=== PATIENT | male | born 1990 | race Caucasian/White ===

== ENCOUNTER 2018-12-18 04:03 | Emergency (ER) | payer OTHER ==
[~2018-12-18] VITALS: Ht 193 cm; Wt 95.0 kg
[2018-12-18 04:35] LABS: BASO % 0.2 % (0.0-1.0); EOS % 0.3 % (0.0-3.0); HEMATOCRIT 43.7 % (42.0-52.0); HEMOGLOBIN 14.6 g/dl (13.5-17.5); LYMPH # 1.9 10^3/uL (1.5-6.5); LYMPH % 15.5 % (24.0-44.0); MEAN CORPUSCULAR HEMOGLOBIN 29.7 pg (27.0-33.0); MEAN CORPUSCULAR HGB CONC 33.4 g/dl (32.0-36.5); MONO # 1.4 10^3/uL (0.0-0.8); MONO % 11.3 % (0.0-5.0); NEUTROPHILS % 72.1 % (36.0-66.0); PLATELET COUNT, AUTOMATED 234 10^3/uL (150-450); RED BLOOD COUNT 4.91 10^6/uL (4.30-6.10); WHITE BLOOD COUNT 12.5 10^3/uL (4.0-10.0)
[2018-12-18] MEDS ORDERED: MORPHINE 10 MG/ML 1ML VIAL (J2270) IV ONE (05:15)
[2018-12-18] MEDS ORDERED: METOCLOPRAMIDE INJ 10MG/2ML VIAL (J2765) IV ONE (05:15)
[2018-12-18] MEDS ORDERED: NS 1,000 ML IV ONE (05:15)
[2018-12-18 05:19] LABS: ALBUMIN 3.5 GM/DL (3.2-5.2); ALT/SGPT 32 U/L (12-78); BILIRUBIN,DIRECT 0.2 MG/DL (0.0-0.2); BILIRUBIN,TOTAL 0.6 MG/DL (0.2-1.0); BLOOD UREA NITROGEN 10 MG/DL (7-18); CALCIUM LEVEL 8.7 MG/DL (8.5-10.1); CARBON DIOXIDE LEVEL 30 MEQ/L (21-32); CHLORIDE LEVEL 103 MEQ/L (98-107); CREATININE FOR GFR 1.09 MG/DL (0.70-1.30); GLOMERULAR FILTRATION RATE > 60.0 (>60); GLUCOSE, FASTING 142 MG/DL (70-100); LIPASE 156 U/L (73-393); SODIUM LEVEL 138 MEQ/L (136-145); TOTAL PROTEIN 7.1 GM/DL (6.4-8.2)
[2018-12-18] MEDS ORDERED: ISOVUE-370 76% 100ML VIAL (Q9967) As Ordered ONE (05:19)
[2018-12-18] MEDS ORDERED: cefTRIAXone SOD 1 GM in D5W MINI-BAG PLUS 50 ML IV ONE (06:30)
[2018-12-18] MEDS ORDERED: ACETAMINOPHEN 500 MG TAB PO ONE (06:30)
[2018-12-18] MEDS ORDERED: AZITHROMYCIN INJ 500 MG, VIAL MATE ADAPTER 1 EACH in D5W 250 ML IV ONE (07:00)
--- NOTE | 2018-12-18 07:19 | REPVR ---
EXAM: CT Abdomen and Pelvis With Contrast EXAM DATE/TIME: 12/18/2018 5:14 AM CLINICAL HISTORY: 28 years old, male; Abdominal pain; Generalized; Additional info: Eval for appy TECHNIQUE: Imaging protocol: Axial computed tomography images of the abdomen and pelvis with intravenous contrast. Coronal and sagittal reformatted images were created and reviewed. Radiation optimization: All CT scans at this facility use at least one of these dose optimization techniques: automated exposure control; mA and/or kV adjustment per patient size (includes targeted exams where dose is matched to clinical indication); or iterative reconstruction. Contrast material: ISO; Contrast volume: 100 ml; Contrast route: AC; COMPARISON: No relevant prior studies available. FINDINGS: Lungs: Moderate airspace opacities in bilateral lower lobes, right greater than left likely representing pneumonia. Pleural space: Small right pleural effusion. Heart: Cardiomegaly. ABDOMEN: Liver: Liver is enlarged with diffuse fatty infiltration. Gallbladder and bile ducts: Normal. No calcified stones. No ductal dilation. Pancreas: Normal. No ductal dilation. Spleen: Normal. No splenomegaly. Adrenals: Normal. No mass. Kidneys and ureters: Normal. No hydronephrosis. Stomach and bowel: Normal. No obstruction. No mucosal thickening. Appendix: Normal appendix. PELVIS: Bladder: Unremarkable as visualized. Reproductive: Unremarkable as visualized. ABDOMEN and PELVIS: Intraperitoneal space: Normal. No free air. No significant fluid collection. Bones/joints: No acute fracture. No dislocation. Soft tissues: Unremarkable. Vasculature: Normal. No abdominal aortic aneurysm. Lymph nodes: Normal. No enlarged lymph nodes. IMPRESSION: Moderate airspace opacities in bilateral lower lobes, right greater than left likely representing pneumonia. Small right pleural effusion. Enlarged fatty liver. Appendix is normal. Electronically signed by: Eva Saunders On 12/18/2018 07:18:52 AM
[2018-12-18] MEDS ORDERED: ZITHTAB PO (07:33)
[2018-12-18 07:56] VITALS: BP 106/57
== END 2018-12-18 08:22 | disposition home or self-care (01) ==
LOC: M ED 04:03 → EDBD 04:03 → M ED 08:22
DX: R91.8 Other nonspecific abnormal finding of lung field (principal); R50.9 Fever, unspecified; K76.0 Fatty (change of) liver, not elsewhere classified; R16.0 Hepatomegaly, not elsewhere classified; J90 Pleural effusion, not elsewhere classified
CPT/HCPCS: 36415; 74177; 80048; 80076; 83690; 85025; 96361; 96365; 96367; 96375; 99284; J0456; J0696; J2270; J2765; Q9967

== ENCOUNTER 2019-06-14 02:27 | Emergency (ER) | payer OTHER ==
[~2019-06-14] VITALS: Ht 182.9 cm; Wt 90.9 kg
[~2019-06-14 02:27] MED LIST: ZITHTAB PO
[2019-06-14] MEDS ORDERED: SERT-138 PO (02:42)
[2019-06-14] MEDS ORDERED: IBUP80TA PO (02:42)
[2019-06-14] MEDS ORDERED: PRED20TA PO (02:42)
[2019-06-14] MEDS ORDERED: PROAAER10 INH (02:42)
[2019-06-14 05:17] VITALS: BP 118/68
--- NOTE | 2019-06-14 05:56 | REP ---
Clinical: Right-sided chest pain. Cough. Technique: PA and lateral. Comparison: None. Findings: Subtle right basilar atelectasis/early infiltrate. No pneumothorax. No significant effusion. Mediastinum and cardiac silhouette normal. Skeletal structures intact. Impression: Subtle right basilar atelectasis/early infiltrate. Electronically Signed by Adeel Malave MD 06/14/2019 05:46 A
--- NOTE | 2019-06-14 10:03 | ED PDOC ---
Post-Departure Follow-Up radiology report faxed to [facility] Nora Gamez MD Jun 14, 2019 10:03
[2019-06-15] MEDS ORDERED: VITA100024 PO (13:37)
== END 2019-06-14 05:20 | disposition home or self-care (01) ==
LOC: M ED 02:27
DX: R07.89 Other chest pain (principal); Z79.899 Other long term (current) drug therapy

== ENCOUNTER 2019-06-15 09:51 | Inpatient (IN) | payer OTHER ==
[~2019-06-15] VITALS: Ht 182.9 cm; Wt 90.1 kg
[~2019-06-15 09:51] MED LIST changes: +IBUP80TA PO; +PRED20TA PO; +PROAAER10 INH; +SERT-138 PO
[2019-06-15] MEDS ORDERED: ALBUTEROL SULFATE 2.5 MG/0.5 ML INH NEB SOLN NEB ONE (10:45)
--- NOTE | 2019-06-15 11:06 | REP ---
Chest x-ray: Two views. History: Rule out pneumonia . Comparison study: June 14, 2019 . Findings: There is an infiltrate again noted posteriorly in the right lower lobe behind the dome of the diaphragm unchanged from yesterday's radiograph and consistent with pneumonia. Remaining lung martel are clear. Heart is not enlarged. Pleural angles are sharp. Impression: Infiltrate in the right base consistent with pneumonia unchanged from yesterday's radiograph. Electronically Signed by Pawel Castellon MD 06/15/2019 10:57 A
[2019-06-15 11:08] LABS: BASO % 0.2 % (0.0-1.0); EOS % 0.1 % (0.0-3.0); HEMATOCRIT 43.4 % (42.0-52.0); HEMOGLOBIN 14.1 g/dl (13.5-17.5); LYMPH # 1.5 10^3/uL (1.5-5.0); LYMPH % 9.2 % (24.0-44.0); MEAN CORPUSCULAR HEMOGLOBIN 29.1 pg (27.0-33.0); MEAN CORPUSCULAR HGB CONC 32.5 g/dl (32.0-36.5); MEAN CORPUSCULAR VOLUME 89.7 fl (80.0-96.0); MONO # 1.2 10^3/uL (0.0-0.8); MONO % 7.1 % (0.0-5.0); NEUTROPHILS # 13.4 10^3/uL (1.5-8.5); PLATELET COUNT, AUTOMATED 214 10^3/uL (150-450); RED BLOOD COUNT 4.84 10^6/uL (4.30-6.10); WHITE BLOOD COUNT 16.3 10^3/uL (4.0-10.0)
[2019-06-15 11:27] LABS: BLOOD UREA NITROGEN 10 MG/DL (7-18); CALCIUM LEVEL 8.9 MG/DL (8.5-10.1); CARBON DIOXIDE LEVEL 30 MEQ/L (21-32); CHLORIDE LEVEL 106 MEQ/L (98-107); CREATININE FOR GFR 0.83 MG/DL (0.70-1.30); GLOMERULAR FILTRATION RATE > 60.0 (>60); GLUCOSE, FASTING 86 MG/DL (70-100); SODIUM LEVEL 140 MEQ/L (136-145)
[2019-06-15] MEDS ORDERED: ISOVUE-370 76% 100ML VIAL (Q9967) As Ordered ONE (11:43)
--- NOTE | 2019-06-15 12:42 | REP ---
CT of the chest with IV contrast for elevated D-dimer and pleuritic chest pain: Comparison is the PA and lateral plain film study performed earlier today. There is an infiltrate in the right lower lobe and there is a small right pleural effusion. There is no left lung infiltrate or pleural effusion. There are no lung nodules or masses. There are no emboli in the pulmonary trunk or central pulmonary arteries. There is an embolus in a fourth order branch of the pulmonary artery to the posterior basilar segment of the right lower lobe. No other pulmonary emboli are identified. The thoracic aorta is unremarkable. Cardiac size is upper normal. There is no pericardial effusion. The visualized upper abdominal contents are unremarkable. Impression: Right lower lobe infiltrate. Small right pleural effusion. Pulmonary embolus in a the fourth order branch of the pulmonary artery to the posterior basilar segment of the right lower lobe. Electronically Signed by Melvin Bean MD 06/15/2019 12:34 P
[2019-06-15] MEDS ORDERED: ACETAMINOPHEN 500 MG TAB PO PRN (13:30)
[2019-06-15] MEDS ORDERED: VITA100024 PO (13:37)
[2019-06-15] MEDS ORDERED: cefTRIAXone SOD 2 GM in D5W MINI-BAG PLUS 50 ML IV ONE (13:45)
[2019-06-15] MEDS ORDERED: DOXYCYCLINE HYCLATE 100 MG in D5W MINI-BAG PLUS 100 ML IV ONE (13:45)
[2019-06-15] MEDS ORDERED: ALBUTEROL SULFATE 2.5 MG/0.5 ML INH NEB SOLN INH PRN (14:00)
--- NOTE | 2019-06-15 14:20 | HPE ---
DATE OF ADMISSION: 06/15/2019 PRIMARY CARE PROVIDER: [facility]. PRINCIPAL DIAGNOSIS: Pulmonary embolism, possible right lower lobe pneumonia. HISTORY: Roney Frazier is a 28-year-old who has had several emergency room and urgent care visits recently for pleuritic right chest pain. Today he came in and had an elevated D-dimer. CT scan of the chest shows right lower lobe pulmonary embolism, as well as a right pleural effusion with possible infiltrate. He has had some chills recently and a cough that is nonproductive. He has no past history of veno thromboembolism, nor is there any family history of this. He says his only risk factor for a deep vein thrombosis (DVT)/pulmonary embolism is frequent prolonged bus rides, he spends about 13 hours a day once a week on a bus going to [facility] to attend a college class and this most recently occurred last week. There is no other risk factor. He is not a smoker. There is no history of leg injury, recent surgery, malignancy, nor any known family history. PAST MEDICAL HISTORY: 1. Pneumonia about 6 months ago. 2. He apparently has hyperlipidemia. SOCIAL HISTORY: He works at [employer]. He does not smoke. He drinks alcohol on rare occasions. He has a son. FAMILY HISTORY: Father's health is unknown. Mother had breast cancer, hypertension. No history of VTE in the family. REVIEW OF SYSTEMS: He has recurrent epistaxis. No rectal bleeding or urinary bleeding. No hemoptysis. No exertional chest pain. No falls or injuries. MEDICATIONS: - albuterol - prednisone at home - sertraline 100 mg daily - ibuprofen as needed - vitamin C PHYSICAL EXAMINATION: VITAL SIGNS: Per flow sheet. Oxygen saturation 98% on room air. GENERAL APPEARANCE: Alert, conversant. No distress. HEENT: Pupils are equal and reactive to light. Tympanic membranes normal. Oropharynx clear. NECK: No masses. LUNGS: Rales in the right base. Soft rub noted. HEART: Regular rhythm. No murmur. ABDOMEN: Soft, nontender. No masses. EXTREMITIES: No cyanosis or edema. No palpable venous cords. No edema in the legs. LABORATORIES: White count 16,000, hemoglobin 14.1, platelets 214. Sodium 140, potassium 4.0, BUN 10, creatinine 0.8, glucose 86, D-dimer is 1600. No PT/PTT done. Chest x-ray shows right lower lobe pneumonia. CT angiogram showed pulmonary embolism in the branch of the pulmonary artery to the posterior basal segment of the right lower lobe. IMPRESSION: 1. Pulmonary embolism. The patient will be admitted to a progressive care unit (PCU) bed and started on Lovenox 1 mg/kg subcutaneous every 12 hours. Could be started on a direct oral anticoagulant, such as Xarelto tomorrow. Thrombophilia workup has been ordered. Ultrasound of both legs ordered. Suspect the etiology of this is DVT from his prolonged bus travel. I had a long discussion with the patient concerning the need to followup with [facility] physician after discharge. 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 2. Hyperlipidemia. This can be addressed through the [facility]. 3. History of depression/anxiety. Continue sertraline. 4. Right lower lobe pneumonia. IV Rocephin and doxycycline have been ordered. Followup CBC ordered. Nebulized bronchodilator as needed. Supplemental oxygen as needed. Respiratory panel ordered.
[2019-06-15 15:07] LABS: INR 1.12; PROTHROMBIN TIME 14.1 SECONDS (11.8-14.0)
[2019-06-15 15:08] LABS: PARTIAL THROMBOPLASTIN TIME 25.3 SECONDS (25.0-38.4)
[2019-06-15 15:40] VITALS: BP 140/98
[2019-06-15] MEDS: ENOXAPARIN 100MG/1ML SYRINGE (J1650) SC SCH (15:50)
[2019-06-15] MEDS: cefTRIAXone SOD 2 GM in D5W MINI-BAG PLUS 50 ML IV SCH (15:50)
--- NOTE | 2019-06-15 15:59 | REP ---
Duplex extremity venous ultrasound: Bilateral lower extremity. History: Pulmonary embolus. Question DVT. Findings: The deep veins are anechoic and fully compressible from the groin to the popliteal fossa in the left and right lower extremity. Color flow imaging is homogeneous. Spectral Doppler interrogation demonstrates intact respiratory variation in flow and normal manual augmentation of flow. There is no evidence of deep vein thrombosis. Impression: Negative bilateral lower extremity duplex venous ultrasound. No evidence of deep vein thrombosis. Electronically Signed by Pawel Castellon MD 06/15/2019 03:51 P
[2019-06-15] MEDS: ALBUTEROL SULFATE 2.5 MG/0.5 ML INH NEB SOLN INH SCH ×2 (16:30→20:36)
[2019-06-15] MEDS: DOXYCYCLINE HYCLATE 100 MG in D5W MINI-BAG PLUS 100 ML IV SCH (16:33)
[2019-06-15] MEDS ORDERED: SLF 3 ML SYR IV PRN (17:15)
[2019-06-15] MEDS: SLF 3 ML SYR IV SCH (19:28)
[2019-06-15 20:00] VITALS: BP 132/76
[2019-06-16] VITALS: BP 144/88
[2019-06-16] MEDS ORDERED: CYCLOBENZAPRINE 10 MG TAB PO ONE (00:15)
[2019-06-16] MEDS: ENOXAPARIN 100MG/1ML SYRINGE (J1650) SC SCH ×2 (03:59→13:13)
[2019-06-16 04:00] VITALS: BP 130/84
[2019-06-16] MEDS: DOXYCYCLINE HYCLATE 100 MG in D5W MINI-BAG PLUS 100 ML IV SCH ×2 (04:00→16:09)
[2019-06-16] MEDS: SLF 3 ML SYR IV SCH ×3 (04:00→19:50)
[2019-06-16] MEDS ORDERED: traMADol 50 MG TAB PO PRN (04:15)
[2019-06-16 06:12] LABS: HEMATOCRIT 42.8 % (42.0-52.0); HEMOGLOBIN 13.7 g/dl (13.5-17.5); MEAN CORPUSCULAR HEMOGLOBIN 28.9 pg (27.0-33.0); MEAN CORPUSCULAR VOLUME 90.3 fl (80.0-96.0); PLATELET COUNT, AUTOMATED 223 10^3/uL (150-450); RED BLOOD COUNT 4.74 10^6/uL (4.30-6.10); WHITE BLOOD COUNT 10.1 10^3/uL (4.0-10.0)
[2019-06-16 06:29] LABS: BLOOD UREA NITROGEN 8 MG/DL (7-18); CALCIUM LEVEL 8.6 MG/DL (8.5-10.1); CARBON DIOXIDE LEVEL 31 MEQ/L (21-32); CHLORIDE LEVEL 106 MEQ/L (98-107); CREATININE FOR GFR 0.97 MG/DL (0.70-1.30); GLOMERULAR FILTRATION RATE > 60.0 (>60); GLUCOSE, FASTING 94 MG/DL (70-100); POTASSIUM SERUM 3.8 MEQ/L (3.5-5.1); SODIUM LEVEL 142 MEQ/L (136-145)
[2019-06-16 08:00] VITALS: BP 139/69
[2019-06-16] MEDS: ALBUTEROL SULFATE 2.5 MG/0.5 ML INH NEB SOLN INH SCH ×4 (08:35→20:29)
[2019-06-16] MEDS: SERTRALINE 100 MG TAB PO SCH (08:50)
[2019-06-16 12:00] VITALS: BP 120/70
--- NOTE | 2019-06-16 13:33 | IPNPDOC ---
Text Note Date of Service The patient was seen on 06/16/19. NOTE Subjective: Patient complains of intermittent cough with reddish sputum produ ction. He continues to have mild shortness of breath on exertion, patient also complains on palpitations Objective:VITAL SIGNS: Please see below. GENERAL APPEARANCE: Well-nourished, well-developed, not in apparent distress HEENT: Normocephalic, atraumatic. Mucous members moist and pink CARDIOVASCULAR: Irregularly irregular rate. No murmurs, rubs or gallops. Radial pulses are intact. There is no lower extremity edema LUNGS: Diminished lung sounds, ABDOMEN: Bowel sounds are hypoactive. Abdomen is soft and nontender. MUSCULOSKELETAL: Range of motion is intact in all 4 extremities NEUROLOGICAL: Cranial nerves II-12 are grossly intact. Speech is not dysarthric Assessment and plan: Patient is 28 years old male without significant past medical history was admitted with pleuritic chest pain, patient was found to have a right lobe pneumonia and right pulmonary embolus. Sepsis Resolved Secondary to right lobe pneumonia Patient has elevated leukocytes count of 16.4 on admission with tachypnea and pulse rate of 95 Blood culture Sputum culture IV fluid PE Patient received treatment with Lovenox 1 mg per KG every 12 hours I will switch patient to Xarelto 15 mg BID for 21 days then 20 mg by mouth daily Await coagulation workup Patient will need follow-up with senior health consultant in the outpatient settings. Patient has never had history of blood clots. Hyperlipidemia. Follow-up in the outpatient settings with PCP History of depression/anxiety. Continue sertraline. Right lower lobe pneumonia. Continue IV Rocephin and doxycycline Nebulized bronchodilator as needed. Supplemental oxygen as needed. Respiratory panel ordered negative Tachyarrhythmia There is concern for frequent PVC versus atrial fibrillation in the settings of pulmonary emboli Telemetry EKG VS,Fishbone, I+O VS, Fishbone, I+O Laboratory Tests 06/16/19 05:56 Vital Signs Date Time Temp Pulse Resp B/P (MAP) Pulse Ox O2 Delivery O2 Flow Rate FiO2 06/16/19 12:00 98.7 86 120/70 (87) 18 Room Air 06/16/19 08:00 90 I&O- Last 24 Hours up to 6 AM 06/16/19 06:00 Intake Total 890 ml Output Total 675 ml Balance 215 ml DROZHZHIN,AVIS DO Jun 16, 2019 13:32
[2019-06-16] MEDS: cefTRIAXone SOD 2 GM in D5W MINI-BAG PLUS 50 ML IV SCH (15:07)
--- NOTE | 2019-06-16 15:35 | ECGEPIP ---
[facility] Test Date: 2019-06-16 Pat Name: CHE ALLAN Department: Room: [place] [address] Gender: Male Manager Account Management: LUZ : 1990 Requested By: AVIS MURRY Order Number: [id number] Reading MD: Rolando Saha Measurements Intervals [place] Rate: 85 P: 35 WY: 156 QRS: 27 QRSD: 97 T: 19 QT: 357 QTc: 425 Interpretive Statements Normal sinus rhythm Q wave in III Delayed anterior R wave progression Comparison tracing not on file Electronically Signed on 06-16-2019 15:35:30 EST by Rolando Saha
[2019-06-16 16:00] VITALS: BP 162/74
[2019-06-16] MEDS: RIVAROXABAN 15 MG TAB (XARELTO) PO SCH (18:26)
[2019-06-16 20:00] VITALS: BP 154/72
[2019-06-17] VITALS: BP 122/76
[2019-06-17] MEDS: DOXYCYCLINE HYCLATE 100 MG in D5W MINI-BAG PLUS 100 ML IV SCH (03:54)
[2019-06-17] MEDS: SLF 3 ML SYR IV SCH (03:54)
[2019-06-17 04:00] VITALS: BP_SYST 119; BP_SYST 139; BP_DIAS 59; BP_DIAS 79
[2019-06-17 05:23] LABS: HEMATOCRIT 44.3 % (42.0-52.0); HEMOGLOBIN 14.2 g/dl (13.5-17.5); MEAN CORPUSCULAR HEMOGLOBIN 28.7 pg (27.0-33.0); MEAN CORPUSCULAR HGB CONC 32.1 g/dl (32.0-36.5); MEAN CORPUSCULAR VOLUME 89.5 fl (80.0-96.0); PLATELET COUNT, AUTOMATED 249 10^3/uL (150-450); RED BLOOD COUNT 4.95 10^6/uL (4.30-6.10); WHITE BLOOD COUNT 9.1 10^3/uL (4.0-10.0)
[2019-06-17 05:44] LABS: BLOOD UREA NITROGEN 8 MG/DL (7-18); CALCIUM LEVEL 9.3 MG/DL (8.5-10.1); CARBON DIOXIDE LEVEL 31 MEQ/L (21-32); CHLORIDE LEVEL 105 MEQ/L (98-107); CREATININE FOR GFR 0.88 MG/DL (0.70-1.30); GLOMERULAR FILTRATION RATE > 60.0 (>60); GLUCOSE, FASTING 103 MG/DL (70-100); POTASSIUM SERUM 4.2 MEQ/L (3.5-5.1); SODIUM LEVEL 140 MEQ/L (136-145)
[2019-06-17] MEDS: ALBUTEROL SULFATE 2.5 MG/0.5 ML INH NEB SOLN INH SCH (07:19)
[2019-06-17 08:00] VITALS: BP 130/85
[2019-06-17] MEDS: SERTRALINE 100 MG TAB PO SCH (08:05)
[2019-06-17] MEDS: RIVAROXABAN 15 MG TAB (XARELTO) PO SCH (08:05)
[2019-06-17] MEDS ORDERED: XARE15TA PO (10:15)
[2019-06-17] MEDS ORDERED: DOXY-350 PO (10:15)
--- NOTE | 2019-06-17 18:05 | DS.PDOC ---
Discharge Summary General Date of Admission Jun 15, 2019 at 13:30 Date of Discharge 06/17/19 Discharge Summary PROCEDURES PERFORMED DURING STAY: None ADMITTING DIAGNOSES: Pulmonary embolism Hyperlipidemia History of depression/anxiety Right lower lobe pneumonia DISCHARGE DIAGNOSES: Pulmonary embolism Hyperlipidemia History of depression/anxiety Right lower lobe pneumonia COMPLICATIONS/CHIEF COMPLAINT: Pulmonary Embolism. HISTORY OF PRESENT ILLNESS: Roney Frazier is a 28-year-old who has had several emergency room and urgent care visits recently for pleuritic right chest pain. Today he came in an d had an elevated D-dimer. CT scan of the chest shows right lower lobe pulmonary embolism, as well as a right pleural effusion with possible infiltrate. He has had some chills recently and a cough that is nonproductive. He has no past history of veno thromboembolism, nor is there any family history of this. He says his only risk factor for a deep vein thrombosis (DVT)/pulmonary embolism is frequent prolonged bus rides, he spends about 13 hours a day once a week on a bus going to [facility] to attend a college class and this most recently occurred last week. There is no other risk factor. He is not a smoker. There is no history of leg injury, recent surgery, malignancy, nor any known family history HOSPITAL COURSE: During hospital course following issue addressed Sepsis Resolved Secondary to right lobe pneumonia Patient has elevated leukocytes count of 16.4 on admission with tachypnea and pulse rate of 95 Blood culture was negative IV fluid PE Patient received treatment with Lovenox 1 mg per KG every 12 hours I switched patient to Xarelto 15 mg BID for 21 days then 20 mg by mouth daily, the duration of anticoagulation depends on coagulation workup Patient will need follow-up with manager resource in the outpatient settings. Patient has never had history of blood clots. Hyperlipidemia. Follow-up in the outpatient settings with PCP History of depression/anxiety. Continue sertraline. Right lower lobe pneumonia. IV Rocephin and doxycycline Nebulized bronchodilator as needed. Supplemental oxygen as needed. Respiratory panel negative Tachyarrhythmia There is concern for frequent PVC versus atrial fibrillation in the settings of pulmonary emboli Telemetry negative for atrial fibrillation, showed sinus rhythm EKG showed sinus rhythm DISCHARGE MEDICATIONS: Please see below. ALLERGIES: Please see below. PHYSICAL EXAMINATION ON DISCHARGE: VITAL SIGNS: Please see below. GENERAL APPEARANCE: Well-nourished, well-developed, not in apparent distress HEENT: Normocephalic, atraumatic. Mucous members moist and pink CARDIOVASCULAR: Irregularly irregular rate. No murmurs, rubs or gallops. Radial pulses are intact. There is no lower extremity edema LUNGS: Diminished lung sounds, ABDOMEN: Bowel sounds are hypoactive. Abdomen is soft and nontender. MUSCULOSKELETAL: Range of motion is intact in all 4 extremities NEUROLOGICAL: Cranial nerves II-12 are grossly intact. Speech is not dysarthric LABORATORY DATA: Please see below. IMAGING: CT of the chest with IV contrast for elevated D-dimer and pleuritic chest pain: Comparison is the PA and lateral plain film study performed earlier today. There is an infiltrate in the right lower lobe and there is a small right pleural effusion. There is no left lung infiltrate or pleural effusion. There are no lung nodules or masses. There are no emboli in the pulmonary trunk or central pulmonary arteries. There is an embolus in a fourth order branch of the pulmonary artery to the posterior basilar segment of the right lower lobe. No other pulmonary emboli are identified. The thoracic aorta is unremarkable. Cardiac size is upper normal. There is no pericardial effusion. The visualized upper abdominal contents are unremarkable. Impression: Right lower lobe infiltrate. Small right pleural effusion. Pulmonary embolus in a the fourth order branch of the pulmonary artery to the posterior basilar segment of the right lower lobe. PROGNOSIS: Favorable ACTIVITY: As tolerated. DIET: Cardiac DISCHARGE PLAN: Follow-up with manager resource and PCP DISPOSITION: 01 Home, Self-Care. DISCHARGE INSTRUCTIONS: Continue taking his Xarelto ITEMS TO FOLLOWUP ON ON OUTPATIENT: Avoid any contact sports when on anticoagulation DISCHARGE CONDITION: Stable TIME SPENT ON DISCHARGE: Greater than 20 minutes. Vital Signs/I&Os Vital Signs Date Time Temp Pulse Resp B/P (MAP) Pulse Ox O2 Delivery O2 Flow Rate FiO2 06/17/19 08:00 98.5 89 18 130/85 (100) 98 Room Air I&O- Last 24 Hours up to 6 AM 06/17/19 06:00 Intake Total 870 ml Output Total 1370 ml Balance -500 ml Laboratory Data Labs 24H Laboratory Tests 2 06/17/19 05:02: Nucleated Red Blood Cells % (auto) 0.0, Anion Gap 4L, Glomerular Filtration Rate > 60.0, Calcium Level 9.3 CBC/BMP Laboratory Tests 06/17/19 05:02 Microbiology Microbiology 06/16/19 Gram Stain - Final, Resulted 06/16/19 Sputum Culture, Resulted Pending 06/16/19 Blood Culture - Preliminary, Resulted No growth after 24 hours . All specim... 06/15/19 Respiratory Virus Panel (PCR) ([facility]) - Final, Complete Discharge Medications Scheduled Ascorbic Acid (Vitamin C) 1,000 Mg Tablet, 1,000 MG PO DAILY, (Reported) Doxycycline Monohydrate (Doxycycline) 100 Mg Capsule, 100 MG PO BID Rivaroxaban (Xarelto) 15 Mg Tablet, 15 MG PO BID@18 Patient will need to get 15 mg by mouth twice a day for 21 day, then 20 mg by mouth daily Sertraline HCl (Sertraline HCl) 100 Mg Tablet, 100 MG PO DAILY, (Reported) Scheduled PRN Albuterol Sulfate (Proair Hfa) 8.5 Gm Hfa.aer.ad, 2 PUFF INH QID PRN for SHORTNESS OF BREATH, (Reported) Ibuprofen (Ibuprofen) 800 Mg Tablet, 800 MG PO TID PRN for PAIN, (Reported) Allergies Coded Allergies: No Known Allergies (Unverified , 12/18/18) AVIS MURRY DO Jun 17, 2019 18:05
== END 2019-06-17 12:20 | disposition home or self-care (01) | DRG 139 ==
LOC: M ED 09:51 → EEVIPCON 13:30 → M ED INP 13:30 → M PCU 15:42
PROVIDERS: ADMIT Family Medicine; ATTEND Internal Medicine
DX: J18.9 Pneumonia, unspecified organism (principal); I26.99 Other pulmonary embolism without acute cor pulmonale; F41.9 Anxiety disorder, unspecified; F32.9 Major depressive disorder, single episode, unspecified; E78.5 Hyperlipidemia, unspecified

== ENCOUNTER → 2021-12-06 | Outpatient (CLI) | payer OTHER ==
[~2021-12-06] MED LIST changes: +DOXY-350 PO; +VITA100024 PO; +XARE15TA PO; +XARE20TA PO
== END ==
LOC: M PLARAD 14:58
DX: R53.83 Other fatigue (principal); R41.89 Other symptoms and signs involving cognitive functions and awareness; R90.82 White matter disease, unspecified

== ENCOUNTER 2022-01-16 08:42 | Emergency (ER) | payer OTHER ==
[~2022-01-16] VITALS: Ht 182.9 cm; Wt 106.6 kg
[2022-01-16] MEDS ORDERED: NS 1,000 ML IV ONE (11:20)
[2022-01-16 12:04] LABS: BASO # 0.1 10^3/uL (0.0-0.2); BASO % 0.8 % (0.0-1.0); EOS # 0.1 10^3/uL (0.0-0.5); EOS % 1.4 % (0.0-3.0); HEMATOCRIT 49.4 % (42.0-52.0); HEMOGLOBIN 16.2 g/dl (13.5-17.5); LYMPH % 27.7 % (24.0-44.0); MEAN CORPUSCULAR HEMOGLOBIN 29.6 pg (27.0-33.0); MEAN CORPUSCULAR HGB CONC 32.8 g/dl (32.0-36.5); MEAN CORPUSCULAR VOLUME 90.3 fl (80.0-96.0); MONO # 0.7 10^3/uL (0.0-0.8); MONO % 9.9 % (2.0-8.0); NEUTROPHILS # 4.2 10^3/uL (1.5-8.5); NEUTROPHILS % 58.4 % (36.0-66.0); PLATELET COUNT, AUTOMATED 218 10^3/uL (150-450); RED BLOOD COUNT 5.47 10^6/uL (4.30-6.10); WHITE BLOOD COUNT 7.2 10^3/uL (4.0-10.0)
[2022-01-16 12:12] LABS: ALT/SGPT 93 U/L (12-78); BILIRUBIN,DIRECT 0.2 MG/DL (0.0-0.2); LIPASE 144 U/L (73-393); TOTAL PROTEIN 7.8 GM/DL (6.4-8.2)
[2022-01-16 12:30] LABS: BLOOD UREA NITROGEN 11 MG/DL (7-18); CALCIUM LEVEL 9.1 MG/DL (8.5-10.1); CARBON DIOXIDE LEVEL 28 MEQ/L (21-32); CHLORIDE LEVEL 106 MEQ/L (98-107); CREATININE FOR GFR 1.13 MG/DL (0.70-1.30); GLOMERULAR FILTRATION RATE > 60.0 (>60); GLUCOSE, FASTING 92 MG/DL (70-100); POTASSIUM SERUM 4.3 MEQ/L (3.5-5.1); SODIUM LEVEL 139 MEQ/L (136-145)
[2022-01-16 14:05] VITALS: BP 139/75
== END 2022-01-16 14:11 | disposition home or self-care (01) ==
LOC: M ED 08:42
DX: R10.9 Unspecified abdominal pain (principal); F41.9 Anxiety disorder, unspecified; F32.9 Major depressive disorder, single episode, unspecified; Z86.711 Personal history of pulmonary embolism; F17.200 Nicotine dependence, unspecified, uncomplicated; Z79.02 Long term (current) use of antithrombotics/antiplatelets; Z79.899 Other long term (current) drug therapy